=== PATIENT | male | born 1940 | race Caucasian/White ===

== ENCOUNTER → 2025-03-18 | Outpatient (CLI) | payer MEDICARE ==
--- NOTE | 2025-03-20 17:17 | HMCIMG ---
EXAM: Whole body bone scan. INDICATION:Prostate cancer for evaluation of skeletal metastases. REFERENCE EXAMINATION: None TECHNIQUE: 21.7 mCi of technetium 99m MDP intravenously. Delayed images were acquired at approximately 3 hours from tracer administration. FINDINGS: The radiopharmaceutical is seen in the expected bio distribution. No abnormal uptake noted in the entire skeleton. IMPRESSION: Normal Bone scan with no obvious evidence of osteoblastic skeletal metastases. /Mallory
== END | disposition home or self-care (01) ==
LOC: RAH 12:47
PROVIDERS: ATTEND Urology
DX: C61 Malignant neoplasm of prostate (principal); R97.20 Elevated prostate specific antigen [PSA]; C79.51 Secondary malignant neoplasm of bone
CPT/HCPCS: 78306; A9503